=== PATIENT | female | born 1970 | race African-American/Black ===

== ENCOUNTER 2021-10-22 12:35 | Inpatient (IN) | payer OTHER ==
[2021-10-22 13:33] VITALS: BMI 29.2
[2021-10-22] MEDS ORDERED: ACETAMINOPHEN 325 MG TABLET (FP) PO PRN ×2 (13:50)
[2021-10-22] MEDS ORDERED: BENZOCAINE/MENTHOL (CHLORASEPTIC ) LOZENGE MM PRN (13:50)
[2021-10-22] MEDS ORDERED: MAGNESIUM HYDROX 2400MG/30ML ORAL SUSPENSION 30 ML CUP PO PRN (13:50)
[2021-10-22] MEDS ORDERED: IBUPROFEN 400 MG TABLET (FP) PO PRN (13:50)
[2021-10-22] MEDS ORDERED: LOPERAMIDE HCL 2 MG CAPSULE PO PRN (13:50)
[2021-10-22] MEDS ORDERED: IBUPROFEN 600 MG TABLET (FP) PO PRN (13:50)
[2021-10-22] MEDS ORDERED: BISMUTH SUBSALICYLATE 524 MG/30 ML PO PRN (13:50)
[2021-10-22] MEDS ORDERED: MAGNESIUM CITRATE 300 ML BOTTLE PO PRN (13:50)
[2021-10-22] MEDS ORDERED: diazePAM 5 MG TABLET PO PRN (13:50)
[2021-10-22] MEDS ORDERED: DICYCLOMINE HCL 10 MG CAPSULE PO PRN (13:50)
[2021-10-22] MEDS ORDERED: MAG HYDROX/AL HYDROX/SIMETH 30 ML UNIT-DOSE CUP PO PRN (13:50)
[2021-10-22] MEDS ORDERED: ONDANSETRON *ODT* 4 MG TABLET SL PRN (13:50)
[2021-10-22] MEDS ORDERED: hydrOXYzine PAMOATE 25 MG CAPSULE (FP) PO ONE (14:16)
[2021-10-22] MEDS ORDERED: amLODIPine BESYLATE 5 MG TABLET (FP) ONE (14:16)
[2021-10-22] MEDS ORDERED: GABAPENTIN 100 MG CAPSULE ONE (14:16)
[2021-10-22] MEDS: GABAPENTIN 300 MG CAPSULE PO SCH ×2 (14:19→22:28)
[2021-10-22] MEDS: amLODIPine BESYLATE 10 MG TABLET (FP) PO SCH (14:19)
[2021-10-22] MEDS: PRENATAL VITAMINS W/ FOLIC ACID TABLET (FP) PO SCH (15:26)
[2021-10-22] MEDS: hydrOXYzine PAMOATE 25 MG CAPSULE (FP) PO SCH ×3 (15:26→22:28)
[2021-10-22] MEDS: diazePAM 5 MG TABLET PO SCH ×2 (17:53→22:28)
[2021-10-22] MEDS: METHOCARBAMOL 500 MG TABLET PO PRN (17:54)
[2021-10-22] MEDS: MELATONIN 5 MG TABLETS PO SCH (22:28)
[2021-10-22] MEDS: THIAMINE HCL 100 MG TABLET (FP) PO SCH (22:28)
[2021-10-23] MEDS: diazePAM 5 MG TABLET PO SCH ×2 (05:35→10:22)
[2021-10-23] MEDS: GABAPENTIN 300 MG CAPSULE PO SCH ×3 (05:35→22:03)
[2021-10-23] MEDS: METHOCARBAMOL 500 MG TABLET PO PRN ×2 (05:36→22:04)
[2021-10-23] MEDS: hydrOXYzine PAMOATE 25 MG CAPSULE (FP) PO SCH ×2 (07:06→10:21)
[2021-10-23] MEDS: amLODIPine BESYLATE 10 MG TABLET (FP) PO SCH (10:20)
[2021-10-23] MEDS: PRENATAL VITAMINS W/ FOLIC ACID TABLET (FP) PO SCH (10:20)
[2021-10-23] MEDS: HYDROCHLOROTHIAZIDE 25 MG TABLET (FP) PO SCH (10:21)
[2021-10-23] MEDS: CHOLECALCIFEROL (VIT D3) 5000 UNITS (125 MCG) CAP PO SCH (10:22)
[2021-10-23 11:28] LABS: CHLORIDE 102 mmol/L (98-107); SODIUM 139 mmol/L (136-145)
[2021-10-23 11:30] LABS: CALCIUM 7.8 mg/dL (8.5-10.1)
[2021-10-23 11:31] LABS: ALBUMIN 3.2 g/dl (3.4-5.0); CO2 27 mmol/L (21-32); GLUCOSE,RANDOM 109 mg/dL (74-106)
[2021-10-23 11:34] LABS: CREATININE 0.7 mg/dL (0.55-1.3); HEMATOCRIT 28.5 % (32.4-45.2); HEMOGLOBIN 9.5 GM/dL (10.7-15.3); MCH 29.7 pg (25.7-33.7); MCHC 33.3 g/dl (32.0-36.0); MEAN CELL VOLUME 89.3 fl (80-96); PLATELET COUNT 53 10^3/uL (134-434); RBC 3.19 M/mm3 (3.60-5.2); RDW 17.1 % (11.6-15.6); SGOT/AST 90 U/L (15-37); SGPT/ALT 28 U/L (13-61); WHITE BLOOD COUNT 3.5 K/mm3 (4.0-10.0)
[2021-10-23 11:35] LABS: BILIRUBIN,TOTAL 1.4 mg/dL (0.2-1)
[2021-10-23 11:36] LABS: TOT PROT 7.6 g/dl (6.4-8.2)
[2021-10-23 11:37] LABS: ALK PHOS 84 U/L (45-117); ANION GAP 11 MMOL/L (8-16)
[2021-10-23] MEDS ORDERED: POTASSIUM CHLORIDE TABS 20 MEQ TABLET.ER (FP) PO ONE (12:15)
[2021-10-23] MEDS ORDERED: POTASSIUM CHLORIDE ORAL LIQUID 20 MEQ/15 ML PO ONE (22:00)
[2021-10-23] MEDS: THIAMINE HCL 100 MG TABLET (FP) PO SCH (22:03)
[2021-10-23] MEDS: MELATONIN 5 MG TABLETS PO SCH (22:03)
[2021-10-24] MEDS ORDERED: diazePAM 5 MG TABLET PO SCH (06:00)
[2021-10-24] MEDS: GABAPENTIN 300 MG CAPSULE PO SCH ×2 (06:15→13:55)
[2021-10-24 10:01] LABS: CHLORIDE 103 mmol/L (98-107); SODIUM 141 mmol/L (136-145)
[2021-10-24 10:03] LABS: CALCIUM 8.2 mg/dL (8.5-10.1)
[2021-10-24 10:04] LABS: ANION GAP 9 MMOL/L (8-16); CO2 28 mmol/L (21-32); GLUCOSE,RANDOM 132 mg/dL (74-106)
[2021-10-24 10:07] LABS: CREATININE 0.6 mg/dL (0.55-1.3)
[2021-10-24 10:10] LABS: BLOOD UREA NITROGEN 2.9 mg/dL (7-18)
[2021-10-24] MEDS: PRENATAL VITAMINS W/ FOLIC ACID TABLET (FP) PO SCH (10:41)
[2021-10-24] MEDS: METHOCARBAMOL 500 MG TABLET PO PRN ×2 (10:45→22:11)
[2021-10-24] MEDS: amLODIPine BESYLATE 10 MG TABLET (FP) PO SCH (10:45)
[2021-10-24] MEDS: HYDROCHLOROTHIAZIDE 25 MG TABLET (FP) PO SCH (10:45)
[2021-10-24] MEDS ORDERED: POTASSIUM CHLORIDE TABS 20 MEQ TABLET.ER (FP) PO ONE ×2 (11:11→18:00)
[2021-10-24] MEDS: CHOLECALCIFEROL (VIT D3) 5000 UNITS (125 MCG) CAP PO SCH (11:54)
[2021-10-24] MEDS: MELATONIN 5 MG TABLETS PO SCH (22:10)
[2021-10-24] MEDS: THIAMINE HCL 100 MG TABLET (FP) PO SCH (22:10)
[2021-10-25] MEDS: GABAPENTIN 300 MG CAPSULE PO SCH ×3 (00:37→13:33)
[2021-10-25] MEDS ORDERED: diazePAM 5 MG TABLET PO SCH (06:00)
[2021-10-25 06:51] VITALS: RESP 18
[2021-10-25 09:54] VITALS: TEMP 97.1
[2021-10-25] MEDS: METHOCARBAMOL 500 MG TABLET PO PRN (10:08)
[2021-10-25] MEDS: amLODIPine BESYLATE 10 MG TABLET (FP) PO SCH (10:09)
[2021-10-25] MEDS: PRENATAL VITAMINS W/ FOLIC ACID TABLET (FP) PO SCH (10:09)
[2021-10-25] MEDS: HYDROCHLOROTHIAZIDE 25 MG TABLET (FP) PO SCH (10:09)
[2021-10-25] MEDS: CHOLECALCIFEROL (VIT D3) 5000 UNITS (125 MCG) CAP PO SCH (10:10)
[2021-10-25 13:36] VITALS: BP 134/83; PULSE 81
[2021-10-25 14:45] LABS: ALBUMIN 3.7 g/dl (3.4-5.0); BLOOD UREA NITROGEN 3.3 mg/dL (7-18); CALCIUM 8.9 mg/dL (8.5-10.1); CREATININE 0.6 mg/dL (0.55-1.3)
[2021-10-25 14:46] LABS: BILIRUBIN,TOTAL 1.3 mg/dL (0.2-1)
[2021-10-25 14:49] LABS: BILIRUBIN,DIRECT 0.5 mg/dL (0.0-0.2)
[2021-10-26] MEDS ORDERED: diazePAM 5 MG TABLET PO ONE (06:00)
== END 2021-10-25 15:11 | disposition home or self-care (01) | DRG 775 ==
LOC: YASAS 12:35 → Y3N 14:22
PROVIDERS: ADMIT Allergy & Immunology; ATTEND Surgery
PROC: HZ2ZZZZ Detoxification Services for Substance Abuse Treatment (ICD-10-PCS; principal; 2021-10-22)
DX: F10.230 Alcohol dependence with withdrawal, uncomplicated (principal); F10.282 Alcohol dependence with alcohol-induced sleep disorder; D50.9 Iron deficiency anemia, unspecified; E87.6 Hypokalemia; G61.9 Inflammatory polyneuropathy, unspecified; R01.1 Cardiac murmur, unspecified; Z85.3 Personal history of malignant neoplasm of breast; Z86.19 Personal history of other infectious and parasitic diseases
CPT/HCPCS: 36415; 71046-TC-FY; 80048; 80053; 80076; 81025; 85027; 86780; 93005; 93010; C9803-CS; U0003; U0005

== ENCOUNTER 2022-01-25 14:51 | Inpatient (IN) | payer OTHER ==
[2022-01-25 16:37] VITALS: BMI 29.3
[2022-01-25] MEDS ORDERED: POLYETHYLENE GLYCOL (HEALTHYLAX) 3350 17 GM PACKET PO PRN (17:40)
[2022-01-25] MEDS ORDERED: DICYCLOMINE HCL 10 MG CAPSULE PO PRN (17:40)
[2022-01-25] MEDS ORDERED: BENZOCAINE/MENTHOL (CHLORASEPTIC ) LOZENGE MM PRN (17:40)
[2022-01-25] MEDS ORDERED: IBUPROFEN 400 MG TABLET (FP) PO PRN (17:40)
[2022-01-25] MEDS ORDERED: MAGNESIUM HYDROX 2400MG/30ML ORAL SUSPENSION 30 ML CUP PO PRN (17:40)
[2022-01-25] MEDS ORDERED: IBUPROFEN 600 MG TABLET (FP) PO PRN (17:40)
[2022-01-25] MEDS ORDERED: MAG HYDROX/AL HYDROX/SIMETH 30 ML UNIT-DOSE CUP PO PRN (17:40)
[2022-01-25] MEDS ORDERED: LOPERAMIDE HCL 2 MG CAPSULE PO PRN (17:40)
[2022-01-25] MEDS ORDERED: BISMUTH SUBSALICYLATE 524 MG/30 ML PO PRN (17:40)
[2022-01-25] MEDS ORDERED: ACETAMINOPHEN 325 MG TABLET (FP) PO PRN ×2 (17:40)
[2022-01-25] MEDS ORDERED: ONDANSETRON *ODT* 4 MG TABLET SL PRN (17:40)
[2022-01-25] MEDS ORDERED: amLODIPine BESYLATE 10 MG TABLET (FP) PO ONE (19:44)
[2022-01-25] MEDS: hydrOXYzine PAMOATE 25 MG CAPSULE (FP) PO PRN ×2 (19:58→22:24)
[2022-01-25] MEDS ORDERED: MELATONIN 5 MG TABLETS PO SCH (22:00)
[2022-01-25] MEDS: THIAMINE HCL 100 MG TABLET (FP) PO SCH (22:24)
[2022-01-25] MEDS: METHOCARBAMOL 500 MG TABLET PO PRN (22:25)
[2022-01-26] MEDS ORDERED: GABAPENTIN 300 MG CAPSULE PO ONE (02:04)
[2022-01-26] MEDS ORDERED: amLODIPine BESYLATE 10 MG TABLET (FP) PO SCH (10:00)
[2022-01-26] MEDS: CHOLECALCIFEROL (VIT D3) 1,000 UNIT (25 MCG) TABLET PO SCH (11:48)
[2022-01-26] MEDS: PRENATAL VITAMINS W/ FOLIC ACID TABLET (FP) PO SCH (11:48)
[2022-01-26] MEDS: HYDROCHLOROTHIAZIDE 25 MG TABLET (FP) PO SCH (11:51)
[2022-01-26] MEDS: GABAPENTIN 300 MG CAPSULE PO SCH ×2 (11:51→19:10)
[2022-01-26 12:21] LABS: HEMATOCRIT 29.9 % (32.4-45.2); HEMOGLOBIN 9.8 GM/dL (10.7-15.3); MCH 30.4 pg (25.7-33.7); MCHC 32.6 g/dl (32.0-36.0); MEAN CELL VOLUME 93.1 fl (80-96); MEAN PLT VOLUME 8.3 fl (7.5-11.1); PLATELET COUNT 111 10^3/uL (134-434); RBC 3.22 M/mm3 (3.60-5.2); RDW 17.4 % (11.6-15.6); WHITE BLOOD COUNT 5.2 K/mm3 (4.0-10.0)
[2022-01-26 12:34] LABS: CALCIUM 8.6 mg/dL (8.5-10.1)
[2022-01-26 12:35] LABS: ALBUMIN 2.9 g/dl (3.4-5.0); BLOOD UREA NITROGEN 5.8 mg/dL (7-18)
[2022-01-26 12:38] LABS: CREATININE 0.6 mg/dL (0.55-1.3)
[2022-01-26 12:40] LABS: BILIRUBIN,TOTAL 1.6 mg/dL (0.2-1); TOT PROT 8.6 g/dl (6.4-8.2)
[2022-01-26] MEDS: FERROUS SO4 325 MG TABLET (FP) PO SCH (17:39)
[2022-01-26] MEDS: hydrOXYzine PAMOATE 25 MG CAPSULE (FP) PO PRN ×2 (17:39→22:10)
[2022-01-26] MEDS: METHOCARBAMOL 500 MG TABLET PO PRN (17:40)
[2022-01-26] MEDS ORDERED: SUVOREXANT 10 MG TABLET PO PRN (22:00)
[2022-01-26] MEDS: THIAMINE HCL 100 MG TABLET (FP) PO SCH (22:10)
[2022-01-27] MEDS: GABAPENTIN 300 MG CAPSULE PO SCH ×2 (05:45→13:13)
[2022-01-27] MEDS: FERROUS SO4 325 MG TABLET (FP) PO SCH ×2 (07:33→13:13)
[2022-01-27 09:34] VITALS: RESP 18
[2022-01-27] MEDS: PRENATAL VITAMINS W/ FOLIC ACID TABLET (FP) PO SCH (10:16)
[2022-01-27] MEDS: CHOLECALCIFEROL (VIT D3) 1,000 UNIT (25 MCG) TABLET PO SCH (10:16)
[2022-01-27] MEDS: HYDROCHLOROTHIAZIDE 25 MG TABLET (FP) PO SCH (10:16)
[2022-01-27 13:12] VITALS: BP 126/79; PULSE 87; TEMP 97.3
== END 2022-01-27 14:47 | disposition other institution (70) | DRG 775 ==
LOC: YASAS 14:51 → Y6N 18:28
PROVIDERS: ADMIT Allergy & Immunology; ATTEND Surgery
PROC: HZ2ZZZZ Detoxification Services for Substance Abuse Treatment (ICD-10-PCS; principal; 2022-01-25)
DX: F10.230 Alcohol dependence with withdrawal, uncomplicated (principal); F10.282 Alcohol dependence with alcohol-induced sleep disorder; F43.21 Adjustment disorder with depressed mood; F32.A Depression, unspecified; G62.9 Polyneuropathy, unspecified; D50.9 Iron deficiency anemia, unspecified; I10 Essential (primary) hypertension; Z85.3 Personal history of malignant neoplasm of breast; Z86.79 Personal history of other diseases of the circulatory system; Z86.018 Personal history of other benign neoplasm
CPT/HCPCS: 36415; 80053; 85027; 86780; C9803-CS; U0003; U0005

== ENCOUNTER 2022-01-27 15:00 | Inpatient (IN) | payer OTHER ==
[2022-01-27 15:37] VITALS: RESP 18
[2022-01-27] MEDS ORDERED: ACETAMINOPHEN 325 MG TABLET (FP) PO PRN (16:06)
[2022-01-27] MEDS ORDERED: NICOTINE 7 MG/24 HOURS TOPICAL PATCH TD PRN (16:06)
[2022-01-27] MEDS ORDERED: BENZOCAINE/MENTHOL (CHLORASEPTIC ) LOZENGE MM PRN (16:06)
[2022-01-27] MEDS ORDERED: POLYETHYLENE GLYCOL (HEALTHYLAX) 3350 17 GM PACKET PO PRN (16:06)
[2022-01-27] MEDS ORDERED: LOPERAMIDE HCL 2 MG CAPSULE PO PRN (16:06)
[2022-01-27] MEDS ORDERED: P-EPHED 60MG/TRIPROLIDI 2.5MG TABLET PO PRN (16:06)
[2022-01-27] MEDS ORDERED: MAG HYDROX/AL HYDROX/SIMETH 30 ML UNIT-DOSE CUP PO PRN (16:06)
[2022-01-27] MEDS ORDERED: guaiFENesin 200 MG/10 ML 10 ML UNIT-DOSE CUPS PO PRN (16:06)
[2022-01-27] MEDS ORDERED: NICOTINE 10 MG CARTRIDGE (INHALER) IH PRN (16:06)
[2022-01-27] MEDS ORDERED: IBUPROFEN 400 MG TABLET (FP) PO PRN (16:06)
[2022-01-27] MEDS: hydrOXYzine PAMOATE 25 MG CAPSULE (FP) PO PRN (21:38)
[2022-01-27] MEDS: GABAPENTIN 300 MG CAPSULE PO SCH (21:39)
[2022-01-27] MEDS: THIAMINE HCL 100 MG TABLET (FP) PO SCH (21:39)
[2022-01-27] MEDS ORDERED: MELATONIN 5 MG TABLETS PO SCH (22:00)
[2022-01-28] MEDS: GABAPENTIN 300 MG CAPSULE PO SCH ×3 (06:18→21:36)
[2022-01-28] MEDS: HYDROCHLOROTHIAZIDE 25 MG TABLET (FP) PO SCH (09:55)
[2022-01-28] MEDS: FERROUS SO4 325 MG TABLET (FP) PO SCH (09:55)
[2022-01-28] MEDS: PRENATAL VITAMINS W/ FOLIC ACID TABLET (FP) PO SCH (09:55)
[2022-01-28] MEDS: FOLIC ACID 1 MG TABLET (FP) PO SCH (09:55)
[2022-01-28] MEDS: MAGNESIUM HYDROX 2400MG/30ML ORAL SUSPENSION 30 ML CUP PO PRN (09:57)
[2022-01-28] MEDS ORDERED: FLU VACC QS2022-23(6MOS UP)/PF 60 MCG/0.5 ML SYRINGE IM ONE (12:00)
[2022-01-28] MEDS ORDERED: PNEUMOC 20-VAL CONJ-DIP CRM/PF 0.5 ML SYRINGE IM ONE (12:00)
[2022-01-28] MEDS: SUVOREXANT 10 MG TABLET PO PRN (21:35)
[2022-01-28] MEDS: THIAMINE HCL 100 MG TABLET (FP) PO SCH (21:36)
[2022-01-29] MEDS: GABAPENTIN 300 MG CAPSULE PO SCH ×3 (06:10→21:27)
[2022-01-29] MEDS: FERROUS SO4 325 MG TABLET (FP) PO SCH (10:09)
[2022-01-29] MEDS: PRENATAL VITAMINS W/ FOLIC ACID TABLET (FP) PO SCH (10:09)
[2022-01-29] MEDS: FOLIC ACID 1 MG TABLET (FP) PO SCH (10:09)
[2022-01-29] MEDS: HYDROCHLOROTHIAZIDE 25 MG TABLET (FP) PO SCH (10:10)
[2022-01-29] MEDS: THIAMINE HCL 100 MG TABLET (FP) PO SCH (21:27)
[2022-01-29] MEDS: SUVOREXANT 10 MG TABLET PO PRN (21:28)
[2022-01-30] MEDS: GABAPENTIN 300 MG CAPSULE PO SCH ×3 (06:32→21:31)
[2022-01-30] MEDS: PRENATAL VITAMINS W/ FOLIC ACID TABLET (FP) PO SCH (09:59)
[2022-01-30] MEDS: FOLIC ACID 1 MG TABLET (FP) PO SCH (09:59)
[2022-01-30] MEDS: HYDROCHLOROTHIAZIDE 25 MG TABLET (FP) PO SCH (09:59)
[2022-01-30] MEDS: FERROUS SO4 325 MG TABLET (FP) PO SCH (09:59)
[2022-01-30] MEDS: MAGNESIUM HYDROX 2400MG/30ML ORAL SUSPENSION 30 ML CUP PO PRN (10:07)
[2022-01-30] MEDS: SUVOREXANT 10 MG TABLET PO PRN (21:31)
[2022-01-30] MEDS: THIAMINE HCL 100 MG TABLET (FP) PO SCH (21:32)
[2022-01-31] MEDS: GABAPENTIN 300 MG CAPSULE PO SCH ×3 (06:18→21:23)
[2022-01-31] MEDS: HYDROCHLOROTHIAZIDE 25 MG TABLET (FP) PO SCH (09:48)
[2022-01-31] MEDS: DOCUSATE SODIUM 100 MG CAPSULE (FP) PO PRN (09:48)
[2022-01-31] MEDS: FOLIC ACID 1 MG TABLET (FP) PO SCH (09:48)
[2022-01-31] MEDS: FERROUS SO4 325 MG TABLET (FP) PO SCH (09:48)
[2022-01-31] MEDS: PRENATAL VITAMINS W/ FOLIC ACID TABLET (FP) PO SCH (09:48)
[2022-01-31] MEDS: SUVOREXANT 10 MG TABLET PO PRN (21:22)
[2022-01-31] MEDS: THIAMINE HCL 100 MG TABLET (FP) PO SCH (21:22)
[2022-02-01] MEDS: GABAPENTIN 300 MG CAPSULE PO SCH ×3 (06:12→21:45)
[2022-02-01] MEDS: PRENATAL VITAMINS W/ FOLIC ACID TABLET (FP) PO SCH (10:04)
[2022-02-01] MEDS: HYDROCHLOROTHIAZIDE 25 MG TABLET (FP) PO SCH (10:05)
[2022-02-01] MEDS: DOCUSATE SODIUM 100 MG CAPSULE (FP) PO PRN ×2 (10:05→21:45)
[2022-02-01] MEDS: FERROUS SO4 325 MG TABLET (FP) PO SCH (10:05)
[2022-02-01] MEDS: FOLIC ACID 1 MG TABLET (FP) PO SCH (10:05)
[2022-02-01] MEDS: MAGNESIUM HYDROX 2400MG/30ML ORAL SUSPENSION 30 ML CUP PO PRN (12:39)
[2022-02-01] MEDS: THIAMINE HCL 100 MG TABLET (FP) PO SCH (21:45)
[2022-02-01] MEDS: SUVOREXANT 10 MG TABLET PO PRN (21:47)
[2022-02-02] MEDS: GABAPENTIN 300 MG CAPSULE PO SCH ×3 (06:10→21:34)
[2022-02-02] MEDS: FOLIC ACID 1 MG TABLET (FP) PO SCH (10:01)
[2022-02-02] MEDS: PRENATAL VITAMINS W/ FOLIC ACID TABLET (FP) PO SCH (10:01)
[2022-02-02] MEDS: FERROUS SO4 325 MG TABLET (FP) PO SCH (10:01)
[2022-02-02] MEDS: HYDROCHLOROTHIAZIDE 25 MG TABLET (FP) PO SCH (11:29)
[2022-02-02] MEDS: hydrOXYzine PAMOATE 25 MG CAPSULE (FP) PO PRN (21:34)
[2022-02-02] MEDS: DOCUSATE SODIUM 100 MG CAPSULE (FP) PO PRN (21:34)
[2022-02-02] MEDS: THIAMINE HCL 100 MG TABLET (FP) PO SCH (21:34)
[2022-02-02] MEDS: SUVOREXANT 10 MG TABLET PO PRN (21:37)
[2022-02-03] MEDS: GABAPENTIN 300 MG CAPSULE PO SCH ×3 (05:55→21:35)
[2022-02-03] MEDS: HYDROCHLOROTHIAZIDE 25 MG TABLET (FP) PO SCH (10:01)
[2022-02-03] MEDS: FERROUS SO4 325 MG TABLET (FP) PO SCH (10:01)
[2022-02-03] MEDS: FOLIC ACID 1 MG TABLET (FP) PO SCH (10:01)
[2022-02-03] MEDS: PRENATAL VITAMINS W/ FOLIC ACID TABLET (FP) PO SCH (10:02)
[2022-02-03] MEDS: SUVOREXANT 10 MG TABLET PO PRN (21:35)
[2022-02-03] MEDS: THIAMINE HCL 100 MG TABLET (FP) PO SCH (21:35)
[2022-02-04] MEDS: GABAPENTIN 300 MG CAPSULE PO SCH ×3 (05:22→21:25)
[2022-02-04] MEDS: FOLIC ACID 1 MG TABLET (FP) PO SCH (10:02)
[2022-02-04] MEDS: HYDROCHLOROTHIAZIDE 25 MG TABLET (FP) PO SCH (10:02)
[2022-02-04] MEDS: PRENATAL VITAMINS W/ FOLIC ACID TABLET (FP) PO SCH (10:02)
[2022-02-04] MEDS: DOCUSATE SODIUM 100 MG CAPSULE (FP) PO PRN ×2 (10:02→21:25)
[2022-02-04] MEDS: FERROUS SO4 325 MG TABLET (FP) PO SCH (10:03)
[2022-02-04] MEDS: THIAMINE HCL 100 MG TABLET (FP) PO SCH (21:26)
[2022-02-04] MEDS: SUVOREXANT 10 MG TABLET PO PRN (21:27)
[2022-02-05] MEDS: GABAPENTIN 300 MG CAPSULE PO SCH ×3 (05:58→21:39)
[2022-02-05] MEDS: FOLIC ACID 1 MG TABLET (FP) PO SCH (09:59)
[2022-02-05] MEDS: HYDROCHLOROTHIAZIDE 25 MG TABLET (FP) PO SCH (09:59)
[2022-02-05] MEDS: PRENATAL VITAMINS W/ FOLIC ACID TABLET (FP) PO SCH (09:59)
[2022-02-05] MEDS: FERROUS SO4 325 MG TABLET (FP) PO SCH (09:59)
[2022-02-05] MEDS: DOCUSATE SODIUM 100 MG CAPSULE (FP) PO PRN (13:07)
[2022-02-05] MEDS: TETRAHYDROZOLINE HCL EYE DROPS OU PRN ×2 (14:41→21:50)
[2022-02-05] MEDS: THIAMINE HCL 100 MG TABLET (FP) PO SCH (21:39)
[2022-02-05] MEDS: SUVOREXANT 10 MG TABLET PO PRN (21:40)
[2022-02-06] MEDS: GABAPENTIN 300 MG CAPSULE PO SCH ×3 (06:35→21:30)
[2022-02-06] MEDS: FOLIC ACID 1 MG TABLET (FP) PO SCH (10:21)
[2022-02-06] MEDS: PRENATAL VITAMINS W/ FOLIC ACID TABLET (FP) PO SCH (10:21)
[2022-02-06] MEDS: FERROUS SO4 325 MG TABLET (FP) PO SCH (10:21)
[2022-02-06] MEDS: HYDROCHLOROTHIAZIDE 25 MG TABLET (FP) PO SCH (10:21)
[2022-02-06] MEDS: TETRAHYDROZOLINE HCL EYE DROPS OU PRN ×2 (13:47→21:31)
[2022-02-06] MEDS: THIAMINE HCL 100 MG TABLET (FP) PO SCH (21:30)
[2022-02-06] MEDS: SUVOREXANT 10 MG TABLET PO PRN (21:34)
[2022-02-07] MEDS: GABAPENTIN 300 MG CAPSULE PO SCH ×3 (06:15→21:34)
[2022-02-07] MEDS: FOLIC ACID 1 MG TABLET (FP) PO SCH (10:09)
[2022-02-07] MEDS: FERROUS SO4 325 MG TABLET (FP) PO SCH (10:09)
[2022-02-07] MEDS: HYDROCHLOROTHIAZIDE 25 MG TABLET (FP) PO SCH (10:09)
[2022-02-07] MEDS: PRENATAL VITAMINS W/ FOLIC ACID TABLET (FP) PO SCH (10:09)
[2022-02-07] MEDS: DOCUSATE SODIUM 100 MG CAPSULE (FP) PO PRN (10:10)
[2022-02-07] MEDS: TETRAHYDROZOLINE HCL EYE DROPS OU PRN ×2 (10:22→21:33)
[2022-02-07] MEDS: SUVOREXANT 10 MG TABLET PO PRN (21:34)
[2022-02-07] MEDS: THIAMINE HCL 100 MG TABLET (FP) PO SCH (21:34)
[2022-02-08] MEDS: GABAPENTIN 300 MG CAPSULE PO SCH ×3 (06:20→21:48)
[2022-02-08] MEDS: DOCUSATE SODIUM 100 MG CAPSULE (FP) PO PRN ×2 (10:08→21:52)
[2022-02-08] MEDS: PRENATAL VITAMINS W/ FOLIC ACID TABLET (FP) PO SCH (10:08)
[2022-02-08] MEDS: FERROUS SO4 325 MG TABLET (FP) PO SCH (10:08)
[2022-02-08] MEDS: HYDROCHLOROTHIAZIDE 25 MG TABLET (FP) PO SCH (10:08)
[2022-02-08] MEDS: FOLIC ACID 1 MG TABLET (FP) PO SCH (10:08)
[2022-02-08] MEDS: TETRAHYDROZOLINE HCL EYE DROPS OU PRN ×2 (10:09→22:07)
[2022-02-08] MEDS: SUVOREXANT 10 MG TABLET PO PRN (21:48)
[2022-02-08] MEDS: THIAMINE HCL 100 MG TABLET (FP) PO SCH (21:48)
[2022-02-09] MEDS: GABAPENTIN 300 MG CAPSULE PO SCH ×3 (06:21→21:27)
[2022-02-09] MEDS: DOCUSATE SODIUM 100 MG CAPSULE (FP) PO PRN (06:22)
[2022-02-09] MEDS: FOLIC ACID 1 MG TABLET (FP) PO SCH (10:11)
[2022-02-09] MEDS: TETRAHYDROZOLINE HCL EYE DROPS OU PRN ×2 (10:11→21:30)
[2022-02-09] MEDS: FERROUS SO4 325 MG TABLET (FP) PO SCH (10:11)
[2022-02-09] MEDS: PRENATAL VITAMINS W/ FOLIC ACID TABLET (FP) PO SCH (10:11)
[2022-02-09] MEDS: HYDROCHLOROTHIAZIDE 25 MG TABLET (FP) PO SCH (10:11)
[2022-02-09] MEDS: MAGNESIUM HYDROX 2400MG/30ML ORAL SUSPENSION 30 ML CUP PO PRN (14:18)
[2022-02-09] MEDS: THIAMINE HCL 100 MG TABLET (FP) PO SCH (21:27)
[2022-02-09] MEDS: SUVOREXANT 10 MG TABLET PO PRN (21:30)
[2022-02-10] MEDS: GABAPENTIN 300 MG CAPSULE PO SCH (06:25)
[2022-02-10] MEDS: DOCUSATE SODIUM 100 MG CAPSULE (FP) PO PRN (06:25)
[2022-02-10 08:19] VITALS: TEMP 98.2
[2022-02-10] MEDS: FERROUS SO4 325 MG TABLET (FP) PO SCH (09:04)
[2022-02-10] MEDS: FOLIC ACID 1 MG TABLET (FP) PO SCH (09:04)
[2022-02-10] MEDS: PRENATAL VITAMINS W/ FOLIC ACID TABLET (FP) PO SCH (09:04)
[2022-02-10] MEDS: HYDROCHLOROTHIAZIDE 25 MG TABLET (FP) PO SCH (09:05)
[2022-02-10 10:58] VITALS: BP 114/59; PULSE 77
== END 2022-02-10 10:45 | disposition home or self-care (01) | DRG 772 ==
LOC: YASAS 15:00 → Y5N 15:01
PROVIDERS: ADMIT Allergy & Immunology; ATTEND Psychiatry & Neurology Pain Medicine
PROC: HZ42ZZZ Group Counseling for Substance Abuse Treatment, Cognitive-Behavioral (ICD-10-PCS; principal; 2022-01-27)
DX: F10.20 Alcohol dependence, uncomplicated (principal); F10.282 Alcohol dependence with alcohol-induced sleep disorder; F43.21 Adjustment disorder with depressed mood; G62.82 Radiation-induced polyneuropathy; I10 Essential (primary) hypertension; H04.123 Dry eye syndrome of bilateral lacrimal glands; Z85.3 Personal history of malignant neoplasm of breast; Z86.79 Personal history of other diseases of the circulatory system; Z87.42 Personal history of other diseases of the female genital tract; Z86.018 Personal history of other benign neoplasm
CPT/HCPCS: 82962; 90677; G0008; Q2036

== ENCOUNTER 2024-01-25 22:43 | Emergency (ER) | payer OTHER ==
[2024-01-25 23:05] VITALS: BMI 25.8
[2024-01-26] MEDS ORDERED: diazePAM 5 MG TABLET ONE (00:18)
[2024-01-26] MEDS: diazePAM 5 MG TABLET PO ONE (00:32)
[2024-01-26 01:02] LABS: POTASSIUM 3.9 mmol/L (3.5-5.1)
[2024-01-26 01:03] LABS: BASO % 0.4 % (0-2.0); EOS % 2.2 % (0-4.5); HEMATOCRIT 35.7 % (32.4-45.2); LYMPH % 37.1 % (8-40); MCH 31.4 pg (25.7-33.7); MCHC 33.7 g/dl (32.0-36.0); MEAN CELL VOLUME 93.1 fl (80-96); MEAN PLT VOLUME 7.1 fl (7.5-11.1); MONO % 15.7 % (3.8-10.2); NEUT % 44.6 % (42.8-82.8); PLATELET COUNT 40 10^3/uL (134-434); RBC 3.83 M/mm3 (3.60-5.2); WHITE BLOOD COUNT 2.6 K/mm3 (4.0-10.0)
[2024-01-26 01:04] LABS: ALBUMIN 2.8 g/dl (3.4-5.0); CALCIUM 8.6 mg/dL (8.5-10.1)
[2024-01-26 01:05] LABS: BLOOD UREA NITROGEN 8.7 mg/dL (7-18)
[2024-01-26 01:08] LABS: CREATININE 0.6 mg/dL (0.55-1.3)
[2024-01-26 01:09] LABS: BILIRUBIN,TOTAL 2.4 mg/dL (0.2-1); TOT PROT 8.3 g/dl (6.4-8.2)
[2024-01-26 03:22] VITALS: BP 152/67; PULSE 78; RESP 18; TEMP 98.8
== END 2024-01-26 03:32 | disposition home or self-care (01) ==
LOC: JER 22:43
DX: R56.9 Unspecified convulsions (principal)
CPT/HCPCS: 36415; 70450-TC; 80053; 82962; 85025; 99284-25

== ENCOUNTER 2024-04-19 12:53 | Inpatient (IN) | payer OTHER ==
[2024-04-19 14:52] LABS: INR 2.25 (0.83-1.09); PROTHROMBIN TIME (PATIENT) 24.7 SEC (9.7-13.0)
[2024-04-19 14:54] LABS: BASO % 0.9 % (0-2.0); EOS % 1.6 % (0-4.5); HEMATOCRIT 37.2 % (32.4-45.2); HEMOGLOBIN 12.5 GM/dL (10.7-15.3); LYMPH % 40.6 % (8-40); MCH 32.5 pg (25.7-33.7); MCHC 33.5 g/dl (32.0-36.0); MEAN CELL VOLUME 96.8 fl (80-96); MEAN PLT VOLUME 9.3 fl (7.5-11.1); NEUT % 41.9 % (42.8-82.8); RBC 3.84 M/mm3 (3.60-5.2); RDW 16.5 % (11.6-15.6); WHITE BLOOD COUNT 2.8 K/mm3 (4.0-10.0)
[2024-04-19 14:57] LABS: PLATELET COUNT 27 10^3/uL (134-434)
[2024-04-19 15:05] LABS: POTASSIUM 3.6 mmol/L (3.5-5.1)
[2024-04-19 15:07] LABS: ALBUMIN 2.8 g/dl (3.4-5.0); BLOOD UREA NITROGEN 4.5 mg/dL (7-18); CALCIUM 9.6 mg/dL (8.5-10.1)
[2024-04-19 15:11] LABS: CREATININE 0.6 mg/dL (0.55-1.3)
[2024-04-19 15:12] LABS: TOT PROT 8.2 g/dl (6.4-8.2)
[2024-04-19 16:56] LABS: HIV INTERPRETATION NEGATIVE (NEGATIVE)
[2024-04-19] MEDS ORDERED: OXYMETAZOLINE 0.05% NASAL SOLUTION 15 ML BOTTLE NS PRN (21:07)
[2024-04-19] MEDS ORDERED: LACTULOSE 20 GM/30 ML UDC (FOR ORAL USE ONLY) PO PRN (21:08)
[2024-04-19] MEDS: LACTULOSE 20 GM/30 ML UDC (FOR ORAL USE ONLY) PO SCH ×2 (21:19)
[2024-04-19] MEDS ORDERED: LORazepam 1 MG TABLET PO PRN (21:23)
[2024-04-19] MEDS: LORazepam 2 MG TABLET PO SCH (21:33)
[2024-04-19 21:37] LABS: BASO % 1.3 % (0-2.0); EOS % 2.2 % (0-4.5); HEMATOCRIT 35.9 % (32.4-45.2); HEMOGLOBIN 11.8 GM/dL (10.7-15.3); LYMPH % 40.4 % (8-40); MCH 32.3 pg (25.7-33.7); MCHC 32.9 g/dl (32.0-36.0); MEAN CELL VOLUME 98.2 fl (80-96); MEAN PLT VOLUME 9.8 fl (7.5-11.1); MONO % 16.7 % (3.8-10.2); NEUT % 39.4 % (42.8-82.8); RBC 3.66 M/mm3 (3.60-5.2); RDW 17.8 % (11.6-15.6); WHITE BLOOD COUNT 2.7 K/mm3 (4.0-10.0)
[2024-04-19 21:40] LABS: PLATELET COUNT 25 10^3/uL (134-434)
[2024-04-19 21:52] LABS: RETICULOCYTES 1.55 % (0.5-1.5)
[2024-04-19] MEDS ORDERED: LORazepam 1 MG TABLET ONE (23:39)
[2024-04-19] MEDS: OXYMETAZOLINE 0.05% NASAL SOLUTION 15 ML BOTTLE NS SCH (23:43)
[2024-04-19] MEDS: LORazepam 1 MG TABLET PO SCH (23:43)
[2024-04-20 01:20] VITALS: BMI 26.6
[2024-04-20] MEDS: LORazepam 1 MG TABLET PO SCH (06:09)
[2024-04-20 08:59] LABS: BASO % 0.9 % (0-2.0); EOS % 2.1 % (0-4.5); HEMATOCRIT 37.4 % (32.4-45.2); HEMOGLOBIN 12.8 GM/dL (10.7-15.3); LYMPH % 37.4 % (8-40); MCH 33.2 pg (25.7-33.7); MCHC 34.3 g/dl (32.0-36.0); MEAN CELL VOLUME 96.9 fl (80-96); MEAN PLT VOLUME 8.7 fl (7.5-11.1); MONO % 13.1 % (3.8-10.2); NEUT % 46.5 % (42.8-82.8); RBC 3.86 M/mm3 (3.60-5.2); RDW 17.4 % (11.6-15.6); RETICULOCYTES 1.32 % (0.5-1.5); WHITE BLOOD COUNT 2.4 K/mm3 (4.0-10.0)
[2024-04-20 09:05] LABS: INR 2.2 (0.83-1.09)
[2024-04-20 09:22] LABS: POTASSIUM 3.4 mmol/L (3.5-5.1)
[2024-04-20 09:25] LABS: ALBUMIN 2.8 g/dl (3.4-5.0); BLOOD UREA NITROGEN 6.7 mg/dL (7-18); CALCIUM 9.1 mg/dL (8.5-10.1)
[2024-04-20 09:28] LABS: BILIRUBIN,DIRECT 1.2 mg/dL (0.0-0.2)
[2024-04-20 09:29] LABS: CREATININE 0.6 mg/dL (0.55-1.3)
[2024-04-20 09:30] LABS: BILIRUBIN,TOTAL 2.2 mg/dL (0.2-1)
[2024-04-20 10:13] LABS: PLATELET COUNT 27 10^3/uL (134-434)
[2024-04-20 10:33] LABS: MAGNESIUM 1.2 mg/dL (1.8-2.4)
[2024-04-20 10:37] LABS: PHOSPHOROUS 3.6 mg/dL (2.5-4.9)
[2024-04-20] MEDS: ESCITALOPRAM OXALATE 20 MG TABLET PO SCH (10:53)
[2024-04-20] MEDS: POTASSIUM CHLORIDE TABS 20 MEQ TABLET.ER (FP) PO SCH (10:53)
[2024-04-20] MEDS: MULTIVITAMINS (DAILY MVI) TABLET (FP) PO SCH (10:53)
[2024-04-20] MEDS: RIFAXIMIN 550 MG TABLET PO SCH (10:53)
[2024-04-20] MEDS: FUROSEMIDE 20 MG TABLET (FP) PO SCH (10:54)
[2024-04-20] MEDS: NIFEdipine E.R. 30 MG TABLET PO SCH (10:54)
[2024-04-20] MEDS: MAGNESIUM OXIDE 400 MG TABLET (FP) PO SCH (10:54)
[2024-04-20] MEDS: PHYTONADIONE 5 MG TABLET PO SCH (11:10)
[2024-04-20] MEDS ORDERED: MAGNESIUM 2GM/50ML STERILE WATER IVPB IVPB ONE (11:26)
[2024-04-20 12:16] LABS: ANISOCYTOSIS 0; MACROCYTOSIS 2+
[2024-04-20] MEDS: MAGNESIUM 2GM/50ML STERILE WATER IVPB IVPB ONE (13:57)
[2024-04-20] MEDS: GABAPENTIN 100 MG CAPSULE PO SCH (21:15)
[2024-04-21] MEDS: LORazepam 0.5 MG TABLET PO SCH (04:04)
[2024-04-21 10:29] LABS: HEMATOCRIT 38.1 % (32.4-45.2); HEMOGLOBIN 12.4 GM/dL (10.7-15.3); MCH 32.2 pg (25.7-33.7); MCHC 32.5 g/dl (32.0-36.0); MEAN CELL VOLUME 98.9 fl (80-96); MEAN PLT VOLUME 9.7 fl (7.5-11.1); PLATELET COUNT 42 10^3/uL (134-434); RBC 3.86 M/mm3 (3.60-5.2); RDW 17.4 % (11.6-15.6); WHITE BLOOD COUNT 3.9 K/mm3 (4.0-10.0)
[2024-04-21 10:45] LABS: POTASSIUM 3.6 mmol/L (3.5-5.1)
[2024-04-21 10:47] LABS: CALCIUM 8.8 mg/dL (8.5-10.1)
[2024-04-21 10:48] LABS: MAGNESIUM 1.8 mg/dL (1.8-2.4)
[2024-04-21 10:51] LABS: CREATININE 0.9 mg/dL (0.55-1.3)
[2024-04-21 10:52] LABS: TOT PROT 8.7 g/dl (6.4-8.2)
[2024-04-21 10:54] LABS: BILIRUBIN,TOTAL 1.9 mg/dL (0.2-1)
[2024-04-21] MEDS: LORazepam 0.5 MG TABLET PO PRN (15:59)
[2024-04-21 17:07] LABS: FREE KAPPA,SERUM 50.8 mg/L (3.3-19.4)
[2024-04-22] MEDS: LORazepam 0.5 MG TABLET PO ONE (05:15)
[2024-04-22 08:54] LABS: HEMATOCRIT 36.8 % (32.4-45.2); HEMOGLOBIN 12.4 GM/dL (10.7-15.3); MCHC 33.6 g/dl (32.0-36.0); MEAN CELL VOLUME 98.1 fl (80-96); MEAN PLT VOLUME 8.5 fl (7.5-11.1); PLATELET COUNT 42 10^3/uL (134-434); RBC 3.75 M/mm3 (3.60-5.2); RDW 17.4 % (11.6-15.6); WHITE BLOOD COUNT 3.6 K/mm3 (4.0-10.0)
[2024-04-22 09:09] LABS: POTASSIUM 3.6 mmol/L (3.5-5.1)
[2024-04-22 09:11] LABS: CALCIUM 8.6 mg/dL (8.5-10.1)
[2024-04-22 09:12] LABS: BLOOD UREA NITROGEN 8.1 mg/dL (7-18); MAGNESIUM 1.6 mg/dL (1.8-2.4)
[2024-04-22 09:15] LABS: CREATININE 0.7 mg/dL (0.55-1.3); PHOSPHOROUS 3.2 mg/dL (2.5-4.9)
[2024-04-22 09:17] LABS: BILIRUBIN,TOTAL 1.9 mg/dL (0.2-1); TOT PROT 8.2 g/dl (6.4-8.2)
[2024-04-23 07:57] LABS: POTASSIUM 3.6 mmol/L (3.5-5.1)
[2024-04-23 07:59] LABS: ALBUMIN 2.8 g/dl (3.4-5.0); BLOOD UREA NITROGEN 6.9 mg/dL (7-18); CALCIUM 8.6 mg/dL (8.5-10.1); MAGNESIUM 1.7 mg/dL (1.8-2.4)
[2024-04-23 08:02] LABS: CREATININE 0.6 mg/dL (0.55-1.3)
[2024-04-23 08:04] LABS: BILIRUBIN,TOTAL 1.5 mg/dL (0.2-1); TOT PROT 7.7 g/dl (6.4-8.2)
[2024-04-23 08:09] LABS: HEMOGLOBIN 11.1 GM/dL (10.7-15.3); MCH 32.4 pg (25.7-33.7); MCHC 32.6 g/dl (32.0-36.0); MEAN CELL VOLUME 99.5 fl (80-96); MEAN PLT VOLUME 8.7 fl (7.5-11.1); PLATELET COUNT 47 10^3/uL (134-434); RBC 3.42 M/mm3 (3.60-5.2); RDW 17.4 % (11.6-15.6)
[2024-04-23 18:07] LABS: IG A QN SERUM. 1062 mg/dL (87-352)
[2024-04-24 09:01] LABS: HEMATOCRIT 33.4 % (32.4-45.2); HEMOGLOBIN 11.1 GM/dL (10.7-15.3); MCH 32.9 pg (25.7-33.7); MCHC 33.4 g/dl (32.0-36.0); MEAN CELL VOLUME 98.4 fl (80-96); MEAN PLT VOLUME 8.6 fl (7.5-11.1); PLATELET COUNT 55 10^3/uL (134-434); RBC 3.39 M/mm3 (3.60-5.2); RDW 17.2 % (11.6-15.6); WHITE BLOOD COUNT 2.8 K/mm3 (4.0-10.0)
[2024-04-24 09:38] LABS: POTASSIUM 3.8 mmol/L (3.5-5.1)
[2024-04-24 09:46] LABS: ALBUMIN 2.6 g/dl (3.4-5.0); BLOOD UREA NITROGEN 8.1 mg/dL (7-18); CALCIUM 8.3 mg/dL (8.5-10.1); MAGNESIUM 1.6 mg/dL (1.8-2.4)
[2024-04-24 09:50] LABS: CREATININE 0.6 mg/dL (0.55-1.3)
[2024-04-24 09:52] LABS: BILIRUBIN,TOTAL 1.3 mg/dL (0.2-1); TOT PROT 7.6 g/dl (6.4-8.2)
[2024-04-24] MEDS: LACTULOSE 20 GM/30 ML UDC (FOR ORAL USE ONLY) PO SCH (15:22)
[2024-04-25 09:15] LABS: HEMATOCRIT 34.9 % (32.4-45.2); HEMOGLOBIN 11.8 GM/dL (10.7-15.3); MCHC 33.6 g/dl (32.0-36.0); MEAN PLT VOLUME 7.9 fl (7.5-11.1); PLATELET COUNT 70 10^3/uL (134-434); RBC 3.57 M/mm3 (3.60-5.2); RDW 17.1 % (11.6-15.6); WHITE BLOOD COUNT 2.7 K/mm3 (4.0-10.0)
[2024-04-25 09:18] LABS: INR 1.82 (0.83-1.09); PROTHROMBIN TIME (PATIENT) 19.8 SEC (9.7-13.0)
[2024-04-25 09:34] LABS: POTASSIUM 3.6 mmol/L (3.5-5.1)
[2024-04-25 09:38] LABS: ALBUMIN 2.9 g/dl (3.4-5.0); BLOOD UREA NITROGEN 5.6 mg/dL (7-18); CALCIUM 8.6 mg/dL (8.5-10.1); MAGNESIUM 1.5 mg/dL (1.8-2.4)
[2024-04-25 09:42] LABS: BILIRUBIN,TOTAL 1.2 mg/dL (0.2-1); CREATININE 0.7 mg/dL (0.55-1.3)
[2024-04-25 09:43] LABS: TOT PROT 8.2 g/dl (6.4-8.2)
[2024-04-25 22:09] VITALS: RESP 18
[2024-04-26 06:33] VITALS: BP 100/72; PULSE 75; TEMP 97.9
== END 2024-04-26 08:43 | disposition other institution (70) | DRG 897 ==
LOC: JER 12:53 → JERBED 19:54 → J7W 04-20 00:53
PROVIDERS: ADMIT Internal Medicine
DX: F10.239 Alcohol dependence with withdrawal, unspecified (principal); D68.9 Coagulation defect, unspecified; D69.6 Thrombocytopenia, unspecified; K70.30 Alcoholic cirrhosis of liver without ascites; K76.82 Hepatic encephalopathy; G62.0 Drug-induced polyneuropathy; D70.9 Neutropenia, unspecified; E83.42 Hypomagnesemia; E87.6 Hypokalemia; J32.0 Chronic maxillary sinusitis; F41.8 Other specified anxiety disorders; D50.9 Iron deficiency anemia, unspecified; Z85.3 Personal history of malignant neoplasm of breast
CPT/HCPCS: 36415; 70450-TC; 70486-TC; 71045-TC-FY; 76700-TC; 80053; 82140; 82248; 82525; 82550; 82607; 82746; 82784; 82977; 83010; 83615; 83735; 83883; 84100; 84155; 84165; 84630; 85025; 85027; 85045; 85384; 85610; 86704; 86708; 86850; 86900; 86901; 87340; 87389; 87517; 88300-TC; 93005; 93010; 99285-25

== ENCOUNTER 2024-04-26 09:25 | Inpatient (IN) | payer OTHER ==
[2024-04-26 10:00] VITALS: BMI 26.6
[2024-04-26] MEDS ORDERED: guaiFENesin 600 MG TABLET.ER (FP) PO PRN (10:10)
[2024-04-26] MEDS ORDERED: LOPERAMIDE HCL 2 MG CAPSULE PO PRN (10:10)
[2024-04-26] MEDS ORDERED: ACETAMINOPHEN 325 MG TABLET (FP) PO PRN (10:10)
[2024-04-26] MEDS ORDERED: MAGNESIUM HYDROX 2400MG/30ML ORAL SUSPENSION 30 ML CUP PO PRN (10:10)
[2024-04-26] MEDS ORDERED: IBUPROFEN 400 MG TABLET (FP) PO PRN (10:10)
[2024-04-26] MEDS ORDERED: NALOXONE (NARCAN) HCL 4 MG/0.1 ML SPRAY NS PRN (10:10)
[2024-04-26] MEDS ORDERED: BENZONATATE 200 MG CAPSULE PO PRN (10:10)
[2024-04-26] MEDS ORDERED: BENZOCAINE/MENTHOL (CHLORASEPTIC ) LOZENGE MM PRN (10:10)
[2024-04-26] MEDS ORDERED: MAG HYDROX/AL HYDROX/SIMETH 30 ML UNIT-DOSE CUP PO PRN (10:10)
[2024-04-26] MEDS ORDERED: IBUPROFEN 600 MG TABLET (FP) PO PRN (10:10)
[2024-04-26] MEDS: ACAMPROSATE CALCIUM 333 MG TABLET.DR PO SCH (14:24)
[2024-04-26] MEDS: RIFAXIMIN 550 MG TABLET PO SCH (21:18)
[2024-04-26] MEDS: MELATONIN 5 MG TABLETS PO SCH (21:18)
[2024-04-26] MEDS: THIAMINE 100 MG TABLET PO SCH (21:18)
[2024-04-26] MEDS: hydrOXYzine PAMOATE 25 MG CAPSULE (FP) PO PRN (21:18)
[2024-04-26] MEDS: MAGNESIUM OXIDE 400 MG TABLET (FP) PO SCH (21:18)
[2024-04-26] MEDS: LACTULOSE 20 GM/30 ML UDC (FOR ORAL USE ONLY) PO SCH (21:19)
[2024-04-27] MEDS: PRENATAL VITAMINS W/ FOLIC ACID TABLET (FP) PO SCH (09:52)
[2024-04-27] MEDS: NIFEdipine E.R. 30 MG TABLET PO SCH (09:53)
[2024-04-27] MEDS: POTASSIUM CHLORIDE TABS 20 MEQ TABLET.ER (FP) PO SCH (09:53)
[2024-04-27] MEDS: FUROSEMIDE 20 MG TABLET (FP) PO SCH (09:53)
[2024-04-27 11:34] LABS: POTASSIUM 3.7 mmol/L (3.5-5.1)
[2024-04-27 11:36] LABS: HEMOGLOBIN 11.6 GM/dL (10.7-15.3); MCH 32.5 pg (25.7-33.7); MCHC 32.2 g/dl (32.0-36.0); MEAN PLT VOLUME 9.2 fl (7.5-11.1); PLATELET COUNT 96 10^3/uL (134-434); RBC 3.56 M/mm3 (3.60-5.2); RDW 17.4 % (11.6-15.6); WHITE BLOOD COUNT 3.2 K/mm3 (4.0-10.0)
[2024-04-27 11:38] LABS: CALCIUM 9.2 mg/dL (8.5-10.1)
[2024-04-27 11:39] LABS: ALBUMIN 3.1 g/dl (3.4-5.0); BLOOD UREA NITROGEN 7.5 mg/dL (7-18)
[2024-04-27 11:42] LABS: CREATININE 0.7 mg/dL (0.55-1.3)
[2024-04-27 11:43] LABS: TOT PROT 8.4 g/dl (6.4-8.2)
[2024-04-27] MEDS ORDERED: PNEUMOC 20-VAL CONJ-DIP CRM/PF 0.5 ML SYRINGE IM ONE (12:00)
[2024-04-27 12:13] LABS: SYPHILIS W/ RPR CONF NON-REACTIVE (NONREACTIVE)
[2024-04-27] MEDS: FLU VACCINE (FLULAVAL) PF 45 MCG/0.5 ML SYRINGE 2024-2025 IM ONE (12:31)
[2024-04-27 12:34] LABS: HIV INTERPRETATION NEGATIVE (NEGATIVE)
[2024-04-27 12:42] LABS: HCV DIAGNOSTIC IN-HOUSE W/RFLX NON-REACTIVE (NONREACTIVE)
[2024-04-27] MEDS: GABAPENTIN 100 MG CAPSULE PO SCH (21:19)
[2024-04-27] MEDS: MELATONIN 5 MG TABLETS PO SCH (21:19)
[2024-04-27] MEDS ORDERED: GABAPENTIN 100 MG CAPSULE PO SCH (22:00)
[2024-04-29] MEDS: POLYETHYLENE GLYCOL (HEALTHYLAX) 3350 17 GM PACKET PO PRN (15:59)
[2024-04-30 11:13] LABS: BASO % 0.7 % (0-2.0); EOS % 1.2 % (0-4.5); HEMATOCRIT 31.5 % (32.4-45.2); HEMOGLOBIN 10.5 GM/dL (10.7-15.3); LYMPH % 44.3 % (8-40); MCH 32.8 pg (25.7-33.7); MCHC 33.3 g/dl (32.0-36.0); MEAN CELL VOLUME 98.7 fl (80-96); MEAN PLT VOLUME 8.4 fl (7.5-11.1); MONO % 18.5 % (3.8-10.2); NEUT % 35.3 % (42.8-82.8); PLATELET COUNT 97 10^3/uL (134-434); RBC 3.19 M/mm3 (3.60-5.2); RDW 17.1 % (11.6-15.6); WHITE BLOOD COUNT 2.9 K/mm3 (4.0-10.0)
[2024-04-30 11:17] LABS: INR 1.85 (0.83-1.09); PROTHROMBIN TIME (PATIENT) 20.4 SEC (9.7-13.0)
[2024-04-30 11:28] LABS: ALBUMIN 2.6 g/dl (3.4-5.0)
[2024-04-30 11:29] LABS: BLOOD UREA NITROGEN 6.6 mg/dL (7-18)
[2024-04-30 11:30] LABS: CALCIUM 8.6 mg/dL (8.5-10.1); MAGNESIUM 1.5 mg/dL (1.8-2.4)
[2024-04-30 11:33] LABS: CREATININE 0.7 mg/dL (0.55-1.3)
[2024-04-30 11:34] LABS: BILIRUBIN,TOTAL 0.8 mg/dL (0.2-1); TOT PROT 6.8 g/dl (6.4-8.2)
[2024-05-01] MEDS: SUVOREXANT 10 MG TABLET PO PRN (21:30)
[2024-05-02] MEDS: LIDOCAINE 5% TOPICAL PATCH TP SCH (10:34)
[2024-05-02] MEDS: CHOLECALCIFEROL (VIT D3) 1,000 UNIT (25 MCG) TABLET PO SCH (10:45)
[2024-05-02] MEDS: LIDOCAINE PATCH REMOVAL MC SCH (21:27)
[2024-05-02] MEDS: MELATONIN 5 MG TABLETS PO SCH (21:28)
[2024-05-02] MEDS: GABAPENTIN 300 MG CAPSULE PO SCH (21:29)
[2024-05-03 07:43] LABS: PH,URINE 7.5 (5.0-8.0); URINE APPEARANCE CLEAR; URINE BILIRUBIN NEGATIVE (NEGATIVE); URINE COLOR YELLOW; URINE GLUCOSE (UA) NEGATIVE (NEGATIVE); URINE KETONE NEGATIVE (NEGATIVE); URINE LEUK ESTERASE NEGATIVE (NEGATIVE); URINE NITRITE NEGATIVE (NEGATIVE); URINE PROTEIN NEGATIVE (NEGATIVE)
[2024-05-03 11:48] LABS: BASO % 0.7 % (0-2.0); EOS % 1.1 % (0-4.5); HEMOGLOBIN 11.1 GM/dL (10.7-15.3); LYMPH % 41.7 % (8-40); MCH 32.2 pg (25.7-33.7); MCHC 32.6 g/dl (32.0-36.0); MEAN CELL VOLUME 98.9 fl (80-96); MEAN PLT VOLUME 8.3 fl (7.5-11.1); MONO % 13.5 % (3.8-10.2); PLATELET COUNT 113 10^3/uL (134-434); RBC 3.44 M/mm3 (3.60-5.2); RDW 16.6 % (11.6-15.6); WHITE BLOOD COUNT 3.8 K/mm3 (4.0-10.0)
[2024-05-03 12:11] LABS: ALBUMIN 2.9 g/dl (3.4-5.0); BLOOD UREA NITROGEN 7.4 mg/dL (7-18); CALCIUM 9.1 mg/dL (8.5-10.1)
[2024-05-03 12:12] LABS: MAGNESIUM 1.8 mg/dL (1.8-2.4)
[2024-05-03 12:14] LABS: BILIRUBIN,TOTAL 0.9 mg/dL (0.2-1); TOT PROT 7.6 g/dl (6.4-8.2)
[2024-05-03 12:15] LABS: CREATININE 0.6 mg/dL (0.55-1.3)
[2024-05-03 12:18] LABS: INR 1.77 (0.83-1.09); PROTHROMBIN TIME (PATIENT) 19.3 SEC (9.7-13.0)
[2024-05-10 10:01] LABS: INR 1.75 (0.83-1.09); PROTHROMBIN TIME (PATIENT) 19.3 SEC (9.7-13.0)
[2024-05-10] MEDS ORDERED: BENZONATATE 200 MG CAPSULE PO PRN (16:32)
[2024-05-10] MEDS: OXYMETAZOLINE 0.05% NASAL SOLUTION 15 ML BOTTLE NS PRN (21:33)
[2024-05-10] MEDS: P-EPHED 60MG/TRIPROLIDI 2.5MG TABLET PO PRN (22:22)
[2024-05-10] MEDS: METHOCARBAMOL 500 MG TABLET PO PRN (22:22)
[2024-05-11] MEDS: ACETAMINOPHEN 325 MG TABLET (FP) PO PRN (07:53)
[2024-05-11] MEDS: guaiFENesin 600 MG TABLET.ER (FP) PO PRN (20:56)
[2024-05-11] MEDS: ASPIRIN 325 MG ENTERIC COATED TABLET (FP) PO ONE (22:44)
[2024-05-12] MEDS ORDERED: NIRMATRELVIR PO SCH (10:00)
[2024-05-12] MEDS ORDERED: RITONAVIR PO SCH (10:00)
[2024-05-13] MEDS: guaiFENesin 200 MG/10 ML 10 ML UNIT-DOSE CUPS PO PRN (03:51)
[2024-05-13] MEDS: BENZOCAINE/MENTHOL (CHLORASEPTIC ) LOZENGE MM PRN (21:27)
[2024-05-14] MEDS: BENZONATATE 200 MG CAPSULE PO PRN (01:59)
[2024-05-16 14:44] VITALS: RESP 18
[2024-05-17 10:38] VITALS: BP 115/78; PULSE 87; TEMP 97.7
== END 2024-05-17 11:00 | disposition home or self-care (01) | DRG 895 ==
LOC: YASAS 09:25 → Y5N 10:40
PROVIDERS: ADMIT Allergy & Immunology; ATTEND Psychiatry & Neurology Pain Medicine
PROC: HZ42ZZZ Group Counseling for Substance Abuse Treatment, Cognitive-Behavioral (ICD-10-PCS; principal; 2024-04-26)
DX: F10.20 Alcohol dependence, uncomplicated (principal); U07.1 COVID-19; F41.9 Anxiety disorder, unspecified; F32.A Depression, unspecified; G62.82 Radiation-induced polyneuropathy; D69.6 Thrombocytopenia, unspecified; D50.9 Iron deficiency anemia, unspecified; I10 Essential (primary) hypertension; K74.60 Unspecified cirrhosis of liver; M54.50 Low back pain, unspecified; G89.29 Other chronic pain; Z85.3 Personal history of malignant neoplasm of breast
CPT/HCPCS: 0241U-QW; 36415; 80053; 80305; 80307; 81003; 81025; 82140; 82652; 82962; 83735; 85025; 85027; 85610; 86780; 86803; 87389; 90656; G0008